=== PATIENT | male | born 1950 | race Caucasian/White ===

== ENCOUNTER 2019-05-03 14:44 | Emergency (ER) | payer MEDICARE, MEDICAID ==
[~2019-05-03] VITALS: Ht 154.9 cm; Wt 68.2 kg
--- NOTE | 2019-05-03 18:03 | NUR ---
CLOTHING PLACWED ON PT
--- NOTE | 2019-05-03 18:56 | NUR ---
PT IS AWAITING TRANSPORT FROM [facility]. UNKNOWN ARRIVAL TIME, [facility] IS BACKED UP PER [employer] SALES AGENT. ROUNDED ON PT, ASSISTED HIM WITH DRINK OF WATER AND OFFERED BLANKET
[2019-05-03 19:42] VITALS: BP 130/71
== END 2019-05-04 00:35 | disposition home or self-care (01) ==
LOC: ER 14:44
DX: Z04.3 Encounter for examination and observation following other accident (principal); Z60.2 Problems related to living alone; W05.0XXA Fall from non-moving wheelchair, initial encounter; Y93.89 Activity, other specified; Y92.89 Other specified places as the place of occurrence of the external cause; Y99.8 Other external cause status
CPT/HCPCS: 99284

== ENCOUNTER 2019-05-06 18:10 | Inpatient (IN) | payer MEDICARE, MEDICAID ==
[~2019-05-06] VITALS: Ht 177.8 cm; Wt 64.0 kg
[2019-05-06] MEDS ORDERED: normal saline 1000ML IV soln IVB ONE (18:45)
[2019-05-06 19:13] LABS: BASOPHILS % (AUTO) 0.4 % (0-1); EOSINOPHILS % (AUTO) 0.3 % (0-6); HEMATOCRIT 45.8 % (42.0-52.0); HEMOGLOBIN 14.8 g/dl (14.0-17.9); LYMPHOCYTES # (AUTO) 0.7 X10'3 (1.1-4.8); LYMPHOCYTES % (AUTO) 6.1 % (21-51); MEAN CORPUSCULAR HEMOGLOBIN 29.7 PG (27.0-31.0); MEAN CORPUSCULAR HGB CONC 32.4 g/dL (33.0-36.5); MEAN CORPUSCULAR VOLUME 91.7 FL (78-98); MEAN PLATELET VOLUME 9.9 FL (7.4-10.4); MONOCYTES # (AUTO) 0.9 X10'3 (0-0.9); MONOCYTES % (AUTO) 7.4 % (2-12); NEUTROPHILS # (AUTO) 9.8 X10'3 (1.8-7.7); NEUTROPHILS % (AUTO) 85.8 % (42-75); PLATELET COUNT 191 X10'3 (140-440); RED BLOOD COUNT 4.99 X10'6 (4.70-6.10); RED CELL DISTRIBUTION WIDTH 14.6 % (11.5-14.5); WHITE BLOOD COUNT 11.4 X10'3 (4.5-11.0)
[2019-05-06 19:25] LABS: ALANINE AMINOTRANSFERASE 24 U/L (12-78); ALBUMIN/GLOBULIN RATIO 0.8 (1.1-1.5); ALKALINE PHOSPHATASE 85 IU/L (46-116); ANION GAP 6 (8-16); ASPARTATE AMINO TRANSFERASE 17 U/L (10-37); BILIRUBIN,TOTAL 0.4 MG/DL (0.1-1.0); BLOOD UREA NITROGEN 18 MG/DL (7-18); BUN/CREATININE RATIO 20.5 (5.4-32.0); CALCIUM 8.8 MG/DL (8.5-10.1); CHLORIDE 110 MMOL/L (99-107); CREATININE 0.88 MG/DL (0.60-1.10); GLUCOSE 108 MG/DL (70-104); POTASSIUM 4.2 MMOL/L (3.5-5.1); SODIUM 143 MMOL/L (135-145); TOTAL CARBON DIOXIDE 26.7 MMOL/L (24-32); TOTAL PROTEIN 6.7 G/DL (6.4-8.2); eGFR 86 ML/MIN
[2019-05-06 19:29] LABS: PARTIAL THROMBOPLASTIN TIME 34 SECONDS (22-32)
--- NOTE | 2019-05-06 19:47 | NUR ---
2-PERSON PERICARE PROVIDED. OBVIOUS SIGNS OF DRIED FECES COVERING PT'S BUTTOCKS NOTED. BARRIER CREAM APPLIED TO RIGHT BUTTOCK, GROIN REGION INCLUDING TESTICLES D/T SKIN REDNESS. PT REPORTS HE HAS BEEN UNABLE TO GET FROM HIS WC TO THE COMMODE FOR ABOUT 2 DAYS. HE DID NOT RECEIVE ASSISTANCE FROM HIS CG. INITIAL EMS REPORT INDICATED CG WAS NOT ON PREMISE @ THEIR TIME OF ARRIVAL. PT PRESENTS A POOR HISTORIAN. HE DOES NOT RECALL WHEN HE LAST SAW OR WAS ASSISTED BY HIS CG. PT'S COMPLAINT TO EMS WAS A SORE THROAT AND DIARRHEA. PT HAD A BM WHILE BEING CLEANED/CHANGE. STOOL WAS SOFT AND FORM; NO DIARRHEA NOTED. EDMD CHRISTA INFORMED. ADDITIONALLY PT PROVIDED FOOD WHICH HE ATE WITH VIGOR AND NO NOTED EVIDENCE THAT HIS THROAT WAS BOTHERING HIM AT THE TIME. AGAIN, EDMD CHRISTA INFORMED.
[2019-05-06] MEDS ORDERED: LIDOcaine 2% 10ml TOPICAL JELLY (Urojet) MM ONE (20:00)
[2019-05-06] MEDS ORDERED: magnesium hydroxide 30ml (MOM) UD suspension PO PRN (20:15)
[2019-05-06] MEDS ORDERED: ondansetron/PF 4mg/2ml inj IV PRN ×2 (20:15→22:45)
[2019-05-06] MEDS ORDERED: acetaminophen 325mg tablet PO PRN ×2 (20:15→22:45)
[2019-05-06] MEDS ORDERED: mag hydrox/Alum hydrox/simeth 30ml oral suspension PO PRN (20:15)
--- NOTE | 2019-05-06 20:45 | NUR ---
Received report from Sharon GREGORIO from ER. Given time to ask questions and have them answered. Will assume patient care when patient arrives on floor.
[2019-05-06 20:52] LABS: CLARITY,URINE CLEAR (Clear); GLUCOSE, URINE NEGATIVE (Neg); KETONES,URINE 40 mg/dl (Neg); LEUKOCYTE ESTERASE ,URINE NEGATIVE (Neg); NITRITES, URINE NEGATIVE (Neg); OCCULT BLOOD,URINE TRACE-INTACT (Neg); PH,URINE 5.5 (4.8-8.0); PROTEIN,URINE TRACE mg/dl (Neg)
[2019-05-06 20:56] LABS: COLOR,URINE DARK YELLOW (Yellow); UA COLLECTION TYPE STRAIGHT CATH
[2019-05-06 21:01] LABS: BACTERIA,URINE NONE SEEN /HPF (Neg); CAL OXALATE CRYSTALS 1+ /HPF (NEGATIVE); MUCUS STRANDS FEW /LPF (Neg); SQUAMOUS EPITHELIAL CELL,UR NONE SEEN /LPF (FEW); WBC,URINE 0-4 /HPF (0-4)
[2019-05-06] MEDS ORDERED: potassium Cl 20 mEq SR tablet PO PRN ×2 (22:45)
[2019-05-06] MEDS ORDERED: magnesium 2GM in 50ml NS 50 ML IV PRN (22:45)
[2019-05-06] MEDS ORDERED: magnesium Cl slow-release 64mg tablet PO PRN (22:45)
[2019-05-06] MEDS ORDERED: potassium CL 10mEq/100ml bag 100 ML IV PRN ×2 (22:45)
[2019-05-06] MEDS ORDERED: magnesium 4gm in 100ml NS 100 ML IV PRN (22:45)
[2019-05-07] VITALS: BP 113/60
[2019-05-07] MEDS: normal saline 1000ml 1,000 ML IV SCH ×3 (00:08→19:34)
[2019-05-07 03:54] LABS: ALBUMIN 2.5 G/DL (3.4-5.0); ANION GAP 8 (8-16); BLOOD UREA NITROGEN 15 MG/DL (7-18); BUN/CREATININE RATIO 22.4 (5.4-32.0); CALCIUM 8.3 MG/DL (8.5-10.1); CHLORIDE 112 MMOL/L (99-107); CREATININE 0.67 MG/DL (0.60-1.10); GLUCOSE 99 MG/DL (70-104); MAGNESIUM 1.9 MG/DL (1.5-2.4); POTASSIUM 3.7 MMOL/L (3.5-5.1); SODIUM 144 MMOL/L (135-145); TOTAL CARBON DIOXIDE 24.2 MMOL/L (24-32); eGFR > 90 ML/MIN
[2019-05-07 04:01] LABS: BASOPHILS # (AUTO) 0.1 X10'3 (0-0.2); BASOPHILS % (AUTO) 0.6 % (0-1); EOSINOPHILS % (AUTO) 0.6 % (0-6); HEMATOCRIT 39.1 % (42.0-52.0); LYMPHOCYTES # (AUTO) 0.9 X10'3 (1.1-4.8); MEAN CORPUSCULAR HEMOGLOBIN 29.9 PG (27.0-31.0); MEAN CORPUSCULAR HGB CONC 33.2 g/dL (33.0-36.5); MEAN CORPUSCULAR VOLUME 90.1 FL (78-98); MEAN PLATELET VOLUME 10.9 FL (7.4-10.4); MONOCYTES # (AUTO) 0.6 X10'3 (0-0.9); MONOCYTES % (AUTO) 7.2 % (2-12); NEUTROPHILS # (AUTO) 6.6 X10'3 (1.8-7.7); NEUTROPHILS % (AUTO) 80.6 % (42-75); PLATELET COUNT 171 X10'3 (140-440); RED BLOOD COUNT 4.34 X10'6 (4.70-6.10); WHITE BLOOD COUNT 8.2 X10'3 (4.5-11.0)
[2019-05-07 04:31] LABS: LARGE PLATELETS FEW; PLATELET ESTIMATE NORMAL
--- NOTE | 2019-05-07 06:17 | NUR ---
Problems reprioritized. Patient report given, questions answered & plan of care reviewed with Silvia GREGORIO.
--- NOTE | 2019-05-07 06:22 | NUR ---
Patient in room [facility]. I have received report from Gui GREGORIO and had the opportunity to ask questions and assume patient care.
[2019-05-07 07:00] VITALS: BP 109/54
[2019-05-07] MEDS: K and/or MAG REPLACEMENT MC SCH (08:00)
[2019-05-07] MEDS: docusate sod 100mg capsule PO SCH ×2 (08:36→19:34)
[2019-05-07 11:31] VITALS: BP 110/64
--- NOTE | 2019-05-07 12:13 | NUR ---
Nutrition consult re: Pt admit with FTT. Per H&P pt admit with generalized weakness with c/o diarrhea; no diarrhea since admit per RN notes. Pt WC bound and with caregiver however can't remember the last time he saw his CG per H&P. Pt currently on regular diet with documented 50/50/100% PO intake at breakfast this morning and with 100% PO intake in ED. Pt with no reliable wt hx. Unable to obtain wt hx from pt as he is A/O x 2 and a poor historian per H&P. Pt with no edema. Documented with severe weakness to lower limbs as pt is WC bound and with mild weakness to upper limbs. Per H&P pt with bitemporal wasting. Pt currently meets criteria for non-severe malnutrition r/t muscle weakness and visible temporal wasting, notified. Will continue to follow. Recommendations: 1) Continue with regular diet 2) Wt per rx Addendum: 05/07/19 at [address] Amended: Links added.
--- NOTE | 2019-05-07 18:00 | NUR ---
Patient in room [facility]. I have received report from Silvia GREGORIO and had the opportunity to ask questions and assume patient care.
--- NOTE | 2019-05-07 18:07 | NUR ---
patient very pleasant and appreciative of cares. Social service, dietary and PT eval placed. Patient able to ambulate 25feet with PT. Needs encouragement with eating and orientated to tray. Report given to Gui GREGORIO
[2019-05-07 20:00] VITALS: BP 113/55
[2019-05-08] VITALS: BP 130/70
[2019-05-08] MEDS: normal saline 1000ml 1,000 ML IV SCH ×2 (05:11→14:29)
[2019-05-08 05:44] LABS: ALBUMIN 2.3 G/DL (3.4-5.0); ANION GAP 5 (8-16); BLOOD UREA NITROGEN 10 MG/DL (7-18); BUN/CREATININE RATIO 13.7 (5.4-32.0); CALCIUM 8.8 MG/DL (8.5-10.1); CHLORIDE 110 MMOL/L (99-107); CREATININE 0.73 MG/DL (0.60-1.10); GLUCOSE 92 MG/DL (70-104); MAGNESIUM 1.9 MG/DL (1.5-2.4); POTASSIUM 3.7 MMOL/L (3.5-5.1); SODIUM 142 MMOL/L (135-145); TOTAL CARBON DIOXIDE 27.2 MMOL/L (24-32); eGFR > 90 ML/MIN
[2019-05-08 05:48] LABS: BASOPHILS % (AUTO) 0.8 % (0-1); EOSINOPHILS # (AUTO) 0.2 X10'3 (0-0.9); HEMATOCRIT 37.4 % (42.0-52.0); HEMOGLOBIN 12.4 g/dl (14.0-17.9); LYMPHOCYTES # (AUTO) 0.8 X10'3 (1.1-4.8); MEAN CORPUSCULAR HEMOGLOBIN 30.3 PG (27.0-31.0); MEAN CORPUSCULAR HGB CONC 33.3 g/dL (33.0-36.5); MEAN CORPUSCULAR VOLUME 91.2 FL (78-98); MEAN PLATELET VOLUME 11.4 FL (7.4-10.4); MONOCYTES # (AUTO) 0.4 X10'3 (0-0.9); MONOCYTES % (AUTO) 8.6 % (2-12); NEUTROPHILS # (AUTO) 3.6 X10'3 (1.8-7.7); NEUTROPHILS % (AUTO) 71.6 % (42-75); PLATELET COUNT 143 X10'3 (140-440); RED CELL DISTRIBUTION WIDTH 14.8 % (11.5-14.5); WHITE BLOOD COUNT 5.1 X10'3 (4.5-11.0)
--- NOTE | 2019-05-08 06:33 | NUR ---
Problems reprioritized. Patient report given, questions answered & plan of care reviewed with Sravanthi GREGORIO. Addendum: 05/08/19 at 0634 by Gui Sharma RN Report was with Bri GREGORIO, not Sravanthi
[2019-05-08 07:00] VITALS: BP 135/70
[2019-05-08] MEDS: K and/or MAG REPLACEMENT MC SCH (08:00)
[2019-05-08] MEDS: docusate sod 100mg capsule PO SCH ×2 (08:48→20:00)
[2019-05-08 09:32] LABS: LARGE PLATELETS FEW; PLATELET ESTIMATE NORMAL
[2019-05-08 11:00] VITALS: BP 120/62
--- NOTE | 2019-05-08 18:38 | NUR ---
Pt. comfortable in bed eating dinner. Fluids running per order. Report given to Ashlie GREGORIO.
[2019-05-08 20:00] VITALS: BP 124/70
--- NOTE | 2019-05-08 23:23 | NUR ---
Patient in room [facility]. I have received report from JG Gregory and had the opportunity to ask questions and assume patient care. Addendum: 05/08/19 at 2325 by Ashlie Mccarty RN Amended: Links added.
[2019-05-09] VITALS: BP 135/76
[2019-05-09] MEDS: normal saline 1000ml 1,000 ML IV SCH ×3 (00:45→20:45)
[2019-05-09 05:22] LABS: CHLORIDE 110 MMOL/L (99-107); GLUCOSE 93 MG/DL (70-104); POTASSIUM 3.7 MMOL/L (3.5-5.1); SODIUM 144 MMOL/L (135-145)
[2019-05-09 05:23] LABS: ALBUMIN 2.5 G/DL (3.4-5.0); ANION GAP 7 (8-16); BLOOD UREA NITROGEN 8 MG/DL (7-18); BUN/CREATININE RATIO 11.1 (5.4-32.0); CALCIUM 8.8 MG/DL (8.5-10.1); CREATININE 0.72 MG/DL (0.60-1.10); MAGNESIUM 1.9 MG/DL (1.5-2.4); TOTAL CARBON DIOXIDE 26.8 MMOL/L (24-32); eGFR > 90 ML/MIN
[2019-05-09 05:28] LABS: BASOPHILS % (AUTO) 0.6 % (0-1); EOSINOPHILS # (AUTO) 0.2 X10'3 (0-0.9); EOSINOPHILS % (AUTO) 2.9 % (0-6); HEMATOCRIT 39.9 % (42.0-52.0); HEMOGLOBIN 13.2 g/dl (14.0-17.9); LYMPHOCYTES # (AUTO) 1.5 X10'3 (1.1-4.8); LYMPHOCYTES % (AUTO) 20.7 % (21-51); MEAN CORPUSCULAR HEMOGLOBIN 30.1 PG (27.0-31.0); MEAN CORPUSCULAR HGB CONC 33.2 g/dL (33.0-36.5); MEAN CORPUSCULAR VOLUME 90.5 FL (78-98); MEAN PLATELET VOLUME 11.1 FL (7.4-10.4); MONOCYTES # (AUTO) 0.5 X10'3 (0-0.9); MONOCYTES % (AUTO) 7.6 % (2-12); NEUTROPHILS # (AUTO) 4.8 X10'3 (1.8-7.7); NEUTROPHILS % (AUTO) 68.2 % (42-75); PLATELET COUNT 162 X10'3 (140-440); RED BLOOD COUNT 4.41 X10'6 (4.70-6.10); RED CELL DISTRIBUTION WIDTH 14.8 % (11.5-14.5); WHITE BLOOD COUNT 7.1 X10'3 (4.5-11.0)
--- NOTE | 2019-05-09 06:28 | NUR ---
Problems reprioritized. Patient report given, questions answered & plan of care reviewed with JG Gregory. Addendum: 05/09/19 at 0629 by Ashlie Mccarty RN Amended: Links added.
[2019-05-09 07:00] VITALS: BP 149/81
[2019-05-09] MEDS: K and/or MAG REPLACEMENT MC SCH (07:04)
[2019-05-09] MEDS: docusate sod 100mg capsule PO SCH ×2 (07:14→19:13)
[2019-05-09] MEDS ORDERED: METO50TA17 PO (09:42)
[2019-05-09] MEDS ORDERED: POTA10TA19 PO (09:43)
[2019-05-09] MEDS ORDERED: FURO20TA4 PO (09:43)
[2019-05-09 11:00] VITALS: BP 127/77
[2019-05-09 18:00] VITALS: BP 151/86
--- NOTE | 2019-05-09 18:55 | NUR ---
Pt. comfortable sitting up in recliner for birthday dinner. Gave report to Ashlie GREGORIO.
--- NOTE | 2019-05-09 20:40 | NUR ---
Patient in room [facility]. I have received report from JG Gregory and had the opportunity to ask questions and assume patient care. Addendum: 05/09/19 at 2040 by Ashlie Mccarty RN Amended: Links added.
[2019-05-10] VITALS: BP 133/80
[2019-05-10] MEDS: normal saline 1000ml 1,000 ML IV SCH (04:30)
[2019-05-10 04:47] LABS: BASOPHILS # (AUTO) 0.1 X10'3 (0-0.2); BASOPHILS % (AUTO) 0.9 % (0-1); EOSINOPHILS # (AUTO) 0.2 X10'3 (0-0.9); HEMATOCRIT 38.7 % (42.0-52.0); MEAN CORPUSCULAR HGB CONC 33.5 g/dL (33.0-36.5); MEAN CORPUSCULAR VOLUME 89.6 FL (78-98); MEAN PLATELET VOLUME 10.7 FL (7.4-10.4); MONOCYTES # (AUTO) 0.5 X10'3 (0-0.9); MONOCYTES % (AUTO) 8.3 % (2-12); NEUTROPHILS # (AUTO) 4.1 X10'3 (1.8-7.7); NEUTROPHILS % (AUTO) 70.8 % (42-75); PLATELET COUNT 162 X10'3 (140-440); RED BLOOD COUNT 4.32 X10'6 (4.70-6.10); RED CELL DISTRIBUTION WIDTH 14.7 % (11.5-14.5); WHITE BLOOD COUNT 5.8 X10'3 (4.5-11.0)
[2019-05-10 05:00] LABS: ALBUMIN 2.5 G/DL (3.4-5.0); ANION GAP 6 (8-16); BLOOD UREA NITROGEN 11 MG/DL (7-18); BUN/CREATININE RATIO 12.9 (5.4-32.0); CALCIUM 8.5 MG/DL (8.5-10.1); CHLORIDE 109 MMOL/L (99-107); CREATININE 0.85 MG/DL (0.60-1.10); GLUCOSE 88 MG/DL (70-104); MAGNESIUM 1.9 MG/DL (1.5-2.4); POTASSIUM 3.7 MMOL/L (3.5-5.1); SODIUM 143 MMOL/L (135-145); TOTAL CARBON DIOXIDE 28.2 MMOL/L (24-32); eGFR 89 ML/MIN
--- NOTE | 2019-05-10 06:33 | NUR ---
Patient in room [facility]. I have received report from Ashlie GREGORIO and had the opportunity to ask questions and assume patient care.
--- NOTE | 2019-05-10 06:37 | NUR ---
Problems reprioritized. Patient report given, questions answered & plan of care reviewed with JG Saab. Addendum: 05/10/19 at 0638 by Ashlie Mccarty RN Amended: Links added.
[2019-05-10 07:00] VITALS: BP 153/85
[2019-05-10] MEDS: docusate sod 100mg capsule PO SCH (07:35)
[2019-05-10] MEDS: K and/or MAG REPLACEMENT MC SCH (08:00)
[2019-05-10 11:00] VITALS: BP 117/68
--- NOTE | 2019-05-10 11:09 | NUR ---
Reassessment: Patient meeting nutrient needs with documented 75-100% PO intake. Diarrhea resolved per MD notes. LBM 05/07, pt with routine Colace. Will continue to follow and monitor need for additional bowel care. Nutrition consult re: Pt admit with FTT. Per H&P pt admit with generalized weakness with c/o diarrhea; no diarrhea since admit per RN notes. Pt WC bound and with caregiver however can't remember the last time he saw his CG per H&P. Pt currently on regular diet with documented 50/50/100% PO intake at breakfast this morning and with 100% PO intake in ED. Pt with no reliable wt hx. Unable to obtain wt hx from pt as he is A/O x 2 and a poor historian per H&P. Pt with no edema. Documented with severe weakness to lower limbs as pt is WC bound and with mild weakness to upper limbs. Per H&P pt with bitemporal wasting. Pt currently meets criteria for non-severe malnutrition r/t muscle weakness and visible temporal wasting, MD notified. Will continue to follow. Recommendations: 1) Continue with regular diet 2) Routine bowel care; monitor need for additional 3) Wt per rx Addendum: 05/10/19 at [address] Amended: Links added.
--- NOTE | 2019-05-10 15:39 | NUR ---
Report called and given to STEFANY Culp at [place]. Patient ready for DC and waiting for transport.
--- NOTE | 2019-05-10 16:15 | NUR ---
Patient dc'd via [facility] accompanied by [facility] staff. patient was alert and oriented and in no apparent distress at time of dc.
== END 2019-05-10 16:14 | DRG 640 ==
LOC: ER 18:11 → SUR 3N 22:56 → CMPBEDREQ 05-09 20:25
PROVIDERS: ADMIT Emergency Medicine; ATTEND Internal Medicine
DX: E86.0 Dehydration (principal); R53.2 Functional quadriplegia; R62.7 Adult failure to thrive; R19.7 Diarrhea, unspecified; D72.829 Elevated white blood cell count, unspecified; I10 Essential (primary) hypertension; Z99.3 Dependence on wheelchair; Z68.20 Body mass index [BMI] 20.0-20.9, adult
CPT/HCPCS: 36415; 71045; 80048; 80053; 81001; 83605; 83735; 84145; 85025; 85610; 85730; 87040; 87081; 92508; 92616; 93005; 97110; 97161; 97530; 99285; G0378; J7030

== ENCOUNTER → 2024-01-30 | Outpatient (CLI) | payer MEDICARE, MEDICAID ==
[~2024-01-30] MED LIST: FURO20TA4 PO; METO50TA17 PO; POTA-192 PO
[2024-01-30 16:22] LABS: BILIRUBIN,URINE NEGATIVE (Neg); CLARITY,URINE CLEAR (Clear); COLOR,URINE YELLOW (Yellow); GLUCOSE, URINE NEGATIVE (Neg); KETONES,URINE NEGATIVE (Neg); LEUKOCYTE ESTERASE ,URINE NEGATIVE (Neg); NITRITES, URINE NEGATIVE (Neg); OCCULT BLOOD,URINE NEGATIVE (Neg); PROTEIN,URINE NEGATIVE (Neg); UROBILINOGEN,URINE 0.2 E.U/dL (0.2-1.0)
[2024-01-30 16:23] LABS: UA COLLECTION TYPE NON-SPECIFIED
== END | disposition home or self-care (01) ==
LOC: LAB 14:39
PROVIDERS: ATTEND General Practice
DX: R94.8 Abnormal results of function studies of other organs and systems (principal); R62.7 Adult failure to thrive
CPT/HCPCS: 81003